=== PATIENT | male | born 1950 | race Caucasian/White ===

== ENCOUNTER 2025-01-04 14:14 | Emergency (ER) | payer MEDICARE, SELFPAY ==
--- OUTSIDE RECORDS SUMMARY | 2022-08-04 13:31 | XMS_ITS | Encounter Summary ---
Author Organization [facility] Address [facility] [place] [address] Care Team Providers Care Curriculum Assistant Principal Name Role Phone Unavailable Primary Care Provider Unavailabl e Encounter Details Date Type Department Care Team (Latest Contact Info) Description 08/04/2022 1:31 PM CDT Hospital Encounter [address] [phone] Ankur Fleming MD [facility] [address] [place] [phone] Hang Anderson MD [address] [place] [phone] [employer] Social History Tobacco Use [...]
--- OUTSIDE RECORDS SUMMARY | 2025-01-04 14:24 | XMS_ITS | Clinical Summary ---
Author Organization [facility] Address [address] [facility] [place] [address] Care Team Providers Care Military Aircraft Designer Name Role Phone Unavailable Primary Care Provider Unavailabl e Source Comments [facility],non-owned Affiliates and Associated Physician Practices is amultiple site organization consisting of ambulatory clinics and hospital sitesin [place], [place], [place] and [place]. This disclosure is being madepursuant to the Care Everywhere program and may not contain all information available regarding this patient. Last updated 18.[facility] [employer] Social History Tobacco Use Types Packs/Day Years Used Date Smoking Tobacco: Never Assessed Sex and Gender Information Value Date Recorded Sex Assigned at Not on file Legal Sex Male 1:51 PM CDT Gender Identity Not on file Sexual Orientation Not on file Plan of Treatment Health Maintenance Due Date Last Done Comments COLOGUARD (AGES 45-75) - COL ON CA SCREENING 1950 COLON MONITORING 1950 COLONOSCOPY - COLON CA SCREENING 1950 CT COLONOGRAPHY - COLON CA SCREENING 1950 Colorectal Cancer Screening 1950 FIT - COLON CA SCREENING 1950 FLEX SIG - COLON CA SCREENING 1950 LIPID TESTING 1950 HEPATITIS C SCREENING 11/30/1968 DTAP/TDAP/TD VACCINES (1 - Tdap) 1969 PNEUMOCOCCAL VACCINE 50+ (1 of 1 - PCV) 2000 ZOSTER VACCINE (1 of 2) 2000 COVID-19 VACCINE (3 - 2023-2 5 season) 2024 10/27/2020, 10/06/2020 DEPRESSION SCREENING 05/08/2024 MEDICARE AWV CALENDAR YEAR 2024 INFLUENZA VACCINE (#1) 2025 Respiratory Syncytial Virus (RSV) Vaccine Pt: or over 60 yrs (1 - 1-dose 75+ series) 2025 HEPATITIS B VACCINE Aged Out No longe r eligible based on patient's age to complete this topic HIB VACCINE Aged Out No longer eligi ble based on patient's age to complete this topic HPV VACCINE Aged Out No longer eligi ble based on patient's age to complete this topic MENINGOCOCCAL (Group B) VACCINE SHARED DECISION-MAKING Aged Out No longer eligible based on patient's age to complete this topic MENINGOCOCCAL GROUPS A/C/Y/W VACCINE Aged Out No longer eligible b ased on patient's age to complete this topic Insurance AETNA MEDICARE ADV Advance Directives * Full Code (Latest Code Status on File) Date Activated Date Inactivated Comments 08/04/2022 8:22 PM 08/16/2022 1:50 PM
[2025-01-04 14:28] VITALS: BP 153/52; PULSE 68; RESP 18; TEMP 36.7; O2SAT 99
--- NOTE | 2025-01-04 14:34 | ED_ITS ---
HPI - Ear Problem General Chief complaint: Ear Stated complaint: ear ache Time Seen by Provider: 01/04/25 14:34 Source: patient Mode of arrival: ambulatory Limitations: no limitations History of Present Illness HPI Narrative: 74 y/o male presented for c/o right ear pain and dizziness. Says dizziness is worse when bending over. Says the right ear is clogged and has muffled hearing. Says he was at the doctor one week ago and was told the ear is full of wax. provides much of the information, and says nothing came out of the ear when they flushed it. Also taking antihistamine. MD Complaint: ear pain Related Data Home Medications ?Medication ?Instructions ?Recorded ?Confirmed ?Last Taken ?Type amlodipine 5 mg tablet mg 01/04/25 Unknown History aspirin 81 mg tablet 81 mg PO DAILY 01/04/25 Unk nown History atorvastatin 40 mg tablet mg 01/04/25 Unknown History ketoconazole 2 % shampoo topical 01/04/25 Unknown Hi story prednisone 10 mg tablet mg 01/04/25 Unknown History triamcinolone acetonide 0.1 % applic topical 01/04/25 Unknown History topical cream Allergies Allergy/AdvReac Type Severity Reaction Status Date / Time oyster extract Allergy Severe Anaphylaxis Verified 01/04/25 14:32 Review of Systems Review of Systems: CONSTITUTIONAL: Denies malaise, chills, or fever. EYES: Denies visual changes, redness, or discharge. ENT: Denies rhinorrhea, congestion, sinus pain, and sore throat. Reports ear pain CARDIOVASCULAR: Denies chest pain, palpitations, or edema. RESPIRATORY: Denies cough or dyspnea. GASTROINTESTINAL: Denies abdominal pain, nausea, vomiting, diarrhea SKIN: Denies rash or itching. MUSCULOSKELETAL: Denies myalgia. NEUROLOGIC: Denies headache. All systems reviewed & are unremarkable except as noted in HPI and below PMFSH Past Medical History Medical History (Updated 01/04/25 @ 14:41 by Jennifer Correia APRN) CVA (cerebral vascular accident) Comments At time of signature, agree with nursing past medical, surgical, social and family history. There is no relevant family history pertinent to the presenting complaint Exam Narrative: GENERAL: Well-appearing EYES: PERRLA, conjunctivae clear ENT: Nares clear. Mucous membranes moist. Right TM unable to visualize due to cerumen impaction. Left TM normal light reflex. canals not erythematous, no drainage, no tragal tenderness. Oropharynx not erythematous without lesions. NECK: Supple. No lymphadenopathy CHEST: Clear to auscultation, breath sounds equal. HEART: Regular rate and rhythm. No murmur heard. SKIN: Warm, dry, no rash. NEURO: Alert and oriented x3. PSYCH: Normal mood and affect Course Course Emergency Course: Patient is aware of diagnosis, understands and agrees to treatment plan. Anticipatory guidance given. Patient agrees to follow-up as directed and is aware of reasons to seek care at the emergency department. Portions of this record may have been created with voice recognition software Level of Care: Express Care Visit Vital Signs Vital signs: Vital Signs Temperature 98.1 F 01/04/25 14:28 Pulse Rate 68 01/04/25 14:28 Respiratory Rate 18 01/04/25 14:28 Blood Pressure 153/52 H 01/04/25 14:28 Pulse Oximetry 99 01/04/25 14:28 Oxygen Delivery Room Air 01/04/25 14:28 Temperature 98.1 F 01/04/25 14:28 Pulse Rate 68 01/04/25 14:28 Respiratory Rate 18 01/04/25 14:28 Blood Pressure 153/52 H 01/04/25 14:28 Pulse Oximetry 99 01/04/25 14:28 Oxygen Delivery Room Air 01/04/25 14:28 Reviewed Procedures Ear Wax Removal Right Ear: Cerumenolytic Used: other ( Warm water and hydrogen peroxide) Results: Re-examined: some cerumen remains TM Examination: other ( unable to visualize) Ear Canal Exam: atraumatic Patient Tolerated Procedure: well and no complications Technique: ear canal irrigated and ear canal curetted Additional Comments: Patient tolerated ear irrigation; large amount of soft wax removed, some hard cerumen remains near TM Medical Decision Making MDM Narrative Medical decision making narrative: Discussed physical exam findings. Patient tolerated ear irrigation; some hard cerumen remains near TM. Advised supportive measures and signs/symptoms to go to the ER. Patient is appropriate for outpatient treatment and follow-up. Differential Diagnosis Differential Diagnosis: Coronavirus, strep pharyngitis, allergic rhinitis, upper respiratory tract infection, sinusitis, rhinosinusitis, nasopharyngitis, viral pharyngitis, otitis media, otitis externa, eustachian tube dysfunction, foreign body, cerumen impaction. Vital Signs Vital Signs: Vital Signs Temperature 98.1 F 01/04/25 14:28 Pulse Rate 68 01/04/25 14:28 Respiratory Rate 18 01/04/25 14:28 Blood Pressure 153/52 H 01/04/25 14:28 Pulse Oximetry 99 01/04/25 14:28 Oxygen Delivery Room Air 01/04/25 14:28 Temperature 98.1 F 01/04/25 14:28 Pulse Rate 68 01/04/25 14:28 Respiratory Rate 18 01/04/25 14:28 Blood Pressure 153/52 H 01/04/25 14:28 Pulse Oximetry 99 01/04/25 14:28 Oxygen Delivery Room Air 01/04/25 14:28 Discharge Plan Discharge Clinical Impression: Cerumen impaction Patient Disposition: Home Condition: Stable Instructions: Antibiotic Form, Carbamide Peroxide (Into the ear) Additional Instructions: use an earwax softening agent such as [id number] Debrox according to package directions, or a mixture of 1 part hydrogen peroxide in 1 part warm water several times a week to keep your earwax soft and prevent further impaction. You can return if symptoms persist after the above measures. Please follow-up with your primary care doctor if you develop new symptoms. If you have urgent concerns please go to the ER. Patient Language: Namibian Prescriptions: No Action atorvastatin 40 mg tablet prednisone 10 mg tablet ketoconazole 2 % shampoo TOPICAL amlodipine 5 mg tablet triamcinolone acetonide 0.1 % cream TOPICAL aspirin 81 mg tablet 81 mg PO DAILY Follow-up/Referrals: PHYSICIAN NOT ON STAFF,NONSTAFF [Primary Care Provider] Time of Disposition: 15:04
== END 2025-01-04 15:12 | disposition home or self-care (01) ==
PROVIDERS: Emergency Provider Nurse Practitioner Family
DX: H61.21 Impacted cerumen, right ear (principal); Z86.73 Personal history of transient ischemic attack (TIA), and cerebral infarction without residual deficits; Z79.82 Long term (current) use of aspirin
CPT/HCPCS: 69209; 99202; A9270; G0463

== ENCOUNTER 2025-01-08 13:10 | Emergency (ER) | payer MEDICARE, SELFPAY ==
--- OUTSIDE RECORDS SUMMARY | 2022-08-04 13:31 | XMS_ITS | Encounter Summary ---
Author Organization [facility] Address [facility] [facility] [place] [address] Care Team Providers Care Glue Drier Operator Name Role Phone Unavailable Primary Care Provider Unavailabl e Encounter Details Date Type Department Care Team (Latest Contact Info) Description 08/04/2022 1:31 PM CDT Hospital Encounter [address] [phone] Ankur Fleming MD [facility] [address] [place] [phone] Hang Anderson MD [address] [place] [phone] [employer] Social History Tobacco Use Types Packs/Day Years Used Date Smoking Tobacco: Never Assessed Sex and Gender Information Value Date Recorded Sex Assigned at Not on file Legal Sex Male 1:51 PM CDT Gender Identity Not on file Sexual Orientation Not on file documented as of this encounter Plan of Treatment Not on file documented as of this encounter Visit Diagnoses Not on filedocumented in this encounter
--- NOTE | 2025-01-08 13:12 | ED_ITS ---
HPI - Ear Problem General Chief complaint: Ear Stated complaint: Ear Pain Source: patient Mode of arrival: ambulatory Limitations: no limitations History of Present Illness HPI Narrative: 74 y/o male presented for c/o right ear pain. Reports he had the ear flushed recently with some removal of wax but not complete removal of wax. He reports he has been using Debrox as directed, he was supposed to flush out again today but started having pain so he did not flush it again. MD Complaint: ear pain Related Data Home Medications ?Medication ?Instructions ?Recorded ?Confirmed ?Last Taken ?Type amlodipine 5 mg tablet mg 01/04/25 Unknown History aspirin 81 mg tablet 81 mg PO DAILY 01/04/25 Unk nown History atorvastatin 40 mg tablet mg 01/04/25 Unknown History ketoconazole 2 % shampoo topical 01/04/25 Unknown Hi story prednisone 10 mg tablet mg 01/04/25 Unknown History Allergies Allergy/AdvReac Type Severity Reaction Status Date / Time oyster extract Allergy Severe Anaphylaxis Verified 01/08/25 13:18 Review of Systems Review of Systems: CONSTITUTIONAL: Denies malaise, chills, or fever. EYES: Denies visual changes, redness, or discharge. ENT: Denies rhinorrhea, congestion, sinus pain, and sore throat. Reports right ear pain CARDIOVASCULAR: Denies chest pain, palpitations, or edema. RESPIRATORY: Denies cough or dyspnea. GASTROINTESTINAL: Denies abdominal pain, nausea, vomiting, diarrhea SKIN: Denies rash or itching. MUSCULOSKELETAL: Denies myalgia. NEUROLOGIC: Denies headache. All systems reviewed & are unremarkable except as noted in HPI and below PMFSH Past Medical History Medical History (Updated 01/08/25 @ 13:36 by Mora Hudson NP) CVA (cerebral vascular accident) Comments At time of signature, agree with nursing past medical, surgical, social and family history. There is no relevant family history pertinent to the presenting complaint Exam Narrative: GENERAL: Well-appearing EYES: PERRLA, conjunctivae clear ENT: Nares clear. Mucous membranes moist. Right TM unable to visualize due to cerumen impaction. Left TM normal light reflex. canals not erythematous, no drainage, no tragal tenderness. Oropharynx not erythematous without lesions. NECK: Supple. No lymphadenopathy CHEST: Clear to auscultation, breath sounds equal. HEART: Regular rate and rhythm. No murmur heard. SKIN: Warm, dry, no rash. NEURO: Alert and oriented x3. PSYCH: Normal mood and affect Course Course Emergency Course: Patient is aware of diagnosis, understands and agrees to treatment plan. Anticipatory guidance given. Patient agrees to follow-up as directed and is aware of reasons to seek care at the emergency department. Portions of this record may have been created with voice recognition software Level of Care: Express Care Visit Vital Signs Vital signs: Reviewed Procedures Ear Wax Removal Right Ear: Ear Wax Removal Date: 01/08/25 Ear Wax Removal Time: 13:28 Cerumenolytic Used: other ( Warm water and hydrogen peroxide) Results: Re-examined: cerumen removed completely TM Examination: TM(s) perforation Ear Canal Exam: bleeding Noted Patient Tolerated Procedure: well Complications: pain Technique: ear canal irrigated Additional Comments: Ear canal flushed very briefly, chunk of wax removed, visualized after that, noticed bleeding and what appears to be ear drum rupture. Procedure discontinued. Medical Decision Making MDM Narrative Medical decision making narrative: Discussed physical exam findings. Patient tolerated ear irrigation; some hard cerumen remains near TM. Advised supportive measures and signs/symptoms to go to the ER. Patient is appropriate for outpatient treatment and follow-up. Differential Diagnosis Differential Diagnosis: Coronavirus, strep pharyngitis, allergic rhinitis, upper respiratory tract infection, sinusitis, rhinosinusitis, nasopharyngitis, viral pharyngitis, otitis media, otitis externa, eustachian tube dysfunction, foreign body, cerumen impaction. Critical Care Time Critical Care Time Critical Care Time: No Discharge Plan Discharge Clinical Impression: Ruptured ear drum Patient Disposition: Home Condition: Stable Instructions: General Patient Instructions, Ruptured Eardrum (ED) Additional Instructions: 1) Please follow-up with your primary care doctor in the next 2 weeks 2) If you have any worsening of symptoms or any other urgent concerns please go to the ER. 3) Please take medications as prescribed and continue taking your home medications as usual. 4) Please read and follow information included in d ischarge instructions. . Patient Language: Filipino Prescriptions: New ofloxacin 0.3 % drops 5 drp RIGHT EAR DAILY 7 Days Qty: 10 0RF No Action atorvastatin 40 mg tablet prednisone 10 mg tablet ketoconazole 2 % shampoo TOPICAL amlodipine 5 mg tablet aspirin 81 mg tablet 81 mg PO DAILY Follow-up/Referrals: UNKNOWN,DOCTOR [Primary Care Provider]
[2025-01-08 13:19] VITALS: BP 168/64; PULSE 68; RESP 18; TEMP 36.8; O2SAT 98
--- OUTSIDE RECORDS SUMMARY | 2025-01-08 14:22 | XMS_ITS | Clinical Summary ---
Author Organization [facility] Address [address] [place] [address] Phone Care Team Providers Care Power Saw Operator Name Role Phone Taj Bowman MD Primary Care Provider Allergies Active Allergy Reactions Criticality Noted Date Comments Bee Venom Swelling Medium 01/25/2019 Other-Environmental Allergen (Not Found In Search) Hives,Swelling Medium 01/25/2019 Oysters Oyster Extract Anaphylaxis High 11/19/2020 Medications amLODIPine (NORVASC) 10 MG Tablet Take 1 Tablet by mouth daily. 90 Tablet 3 3 Active acyclovir (ZOVIRAX) 800 MG Tablet Take 1 Tablet by mouth 2 times daily. 180 Tablet 3 Active famotidine (PEPCID) 10 MG Tablet Take 10 mg by mouth. 3 Active Lidocaine 4 % Patch 1 Patch by Transdermal route. 3 Active lisinopril (PRINIVIL, ZESTRIL) 5 MG Tablet Take 5 mg by mouth. 3 Active melatonin 3 MG Tablet Take 3 mg by mouth. 3 Active polyethylene glycol (GLYCOLAX) 17 GM/SCOOP Powder Take 17 g by mouth. 3 Active atorvastatin (LIPITOR) 20 MG Tablet Take 4 Tablets by mouth nightly. 120 Tablet 5 3 Active triamcinolone (ARISTOCORT) 0.5 % Cream APPLY TO RASH ON FACE TWICE DAILY NEEDED FOR FLARE UP 45 g 3 3 Active Active Problems Problem Noted Date Diagnosed Date Herpes simplex infection 05/31/2021 Other hyperlipidemia 05/31/2021 Overview (05/31/2021): Check lipid profile. Continue low-cholesterol diet. Essential hypertension, benign 05/31/2021 Overview (05/31/2021): Stable. Continue current medication Encounters Date Type Department Care Team Description 01/04/2025 2:22 AM CDT - 01/04/2025 4:22 AM CDT Emergency [facility] [address] [place] [address] Discharge Disposition: LWBS 01/04/2025 Travel from Last 3 Months Immunizations Immunization Administration Dates Next Due Covid-19, Mrna, Lnp-s, Pf, 30 Mcg/0.3 Ml Dose (P fizer) 10/27/2020,10/06/2020 Pneumococcal conjugate PCV20 , polysaccharide [id number] conjugate, adjuvant, PF 07/27/2023 Family History Relation Name Status Comments Brother Alive Father Mother Sister Social History Tobacco Use Types Packs/Day Years Used Date Smoking Tobacco: Former Cigarettes Smokeless Tobacco: Never Tobacco Cessation:Counseling Given: Not Answered Alcohol Use Standard Drinks/Week Comments Yes 0 (1 standard drink = 0.6 oz pur e alcohol) Occasional PHQ-2 Answer Date Recorded Total Score - Questions 1-9 0 05/09 Sexually Active Control Partners Comments Yes Female Sex and Gender Information Value Date Recorded Sex Assigned at Not on file Legal Sex Male 12:31 AM CDT Gender Identity Not on file Sexual Orientation Not on file Last Filed Vital Signs Vital Sign Reading Time Taken Comments Blood Pressure 187/78 01/04/2025 2:33 AM CDT Pulse 60 01/04/2025 2:29 AM CDT Temperature 36.2 C (97.1 F) 01/04/2025 2:29 AM CDT Respiratory Rate 18 01/04/2025 2:29 AM CDT Oxygen Saturation 99% 01/04/2025 2:29 AM CDT Inhaled Oxygen Concentration - - Weight 70.3 kg (155 lb) 01/04/2025 2:29 AM CDT Height 172.7 cm (5' 8) 01/04/2025 2:29 AM CDT Body Mass Index 23.57 01/04/2025 2:29 AM CDT Plan of Treatment Health Maintenance Due Date Last Done Comments Hepatitis C Virus (HCV) Screening 1950 TdaP Immunization 1950 Colonoscopy 12/06/1995 Immunochemical Fecal Occult Blood 12/06/1995 Zoster Immunization (1 of 2) 2000 AAA Screening Ultrasound 12/06/2015 Cologuard 07/21/2022 07/22/2019 Colorectal Cancer Screening 07/21/2022 SARS-COV-2 Immunization ( season) 2025 04/16/2022, 05/17/2021, 05/04/2021, Additional history exists Respiratory Syncytial Virus (RSV) Immunization (Adult) (1 - 1-dose 75+ series) 2025 PSA Discussion Discontinued 11/25/2020 Pneumococcal Immunization (50+ years) Discontinued 07/27/2023 Pneumococcal Immunization Combined Discontinued 07/27/2023 Hepatitis B Immunization Aged Out No longer eligible based on patient's age to complete this topic Human Papillomavirus (HPV) Immunization Aged Out No longer eligible based on patient's age to complete this topic Influenza Immunization Discontinued Meningococcal Immunization (ACWY) Aged Out No longer eligible based on patient's age to complete this topic Rotavirus Immunization Aged Out No lo nger eligible based on patient's age to complete this topic Procedures Procedure Name Priority Date/Time Associated Diagnosis Comments PSA SCREEN Routine 11/25/2020 Screening for prostate cancer COLOGUARD Routine 07/22/2019 from Last 3 Months or Most Recently Relevant to Health Maintenance Results * PSA SCREEN (11/25/2020) PSA (PROSTATE SPECIFIC ANTIGEN) 0.6 ng/mL Blood 11/25/2020 us Taj Bowman MD CHEMISTRY ORDERABLES Final Result * COLOGUARD (07/22/2019) us Taj Bowman MD BODY FLUIDS & STOOLS ORDERA BLES Final Result from Last 3 Months or Most Recently Relevant to Health Maintenance Insurance MEDICARE C AETNA Care Teams Power Saw Operator Relationship Specialty Start Date End Date Taj Bowman MD PCP - General Internal Medicine 06/20/19
--- OUTSIDE RECORDS SUMMARY | 2025-01-08 14:22 | XMS_ITS | Clinical Summary ---
Author Organization [facility] Address [address] [place] [address] Care Team Providers Care Supervisor Carpenters Name Role Phone Ra Crowder DO Primary Care Provider [phone] Allergies Active Allergy Reactions Criticality Noted Date Comments Bee Venom Protein (Honey Bee) Swelling Medium 2018 Venom-Honey Bee Swelling Medium 01/25/2019 Calcium Carbonate Anaphylaxis High 12/16/2024 Other Hives,Swelling Medium 01/25/2019 Oysters Oyster Extract Anaphylaxis High 11/19/2020 Medications triamcinolone (KENALOG) 0.1 % creamIndications :Skin Inflammation Apply topically 2 (two) times a day 11/14/19 19 Active ARGININE, L-ARGININE, ORALIndications: supplement Take 1 tablet by mouth every morning Active amLODIPine (NORVASC) 5 mg tablet TK 1 T PO D 0 02/09/20 19 Active aspirin 81 mg enteric coated tablet 1 tablet (81 mg total) 08/19/19 23 Active atorvastatin (LIPITOR) 40 mg tablet Take 1 tablet (40 mg total) by mouth daily Active ketoconazole (NIZORAL) 2 % shampoo 12/17/19 25 Active VITAMINS A AND D ORALIndications: supplement Take 1 tablet by mouth every morning 025 Discontin ued(Patie nt Reported) vitamin E acetate (VITAMIN E ORAL)Indications :supplement Take 2 tablets by mouth every morning 025 Discontin ued(Patie nt Reported) ubidecarenone (CO Q-10 ORAL)Indications :supplement Take 1 tablet by mouth every morning 025 Discontin ued(Patie nt Reported) herbal drugs tabletIndication s:Bone Restore Take 1 tablet by mouth every morning 025 Discontin ued(Patie nt Reported) herbal drugs tabletIndication s:T M G for heart Take 1 tablet by mouth every morning 025 Discontin ued(Patie nt Reported) prasterone, DHEA, (DHEA ORAL)Indications :supplement Take 1 tablet by mouth every morning 025 Discontin ued(Patie nt Reported) NIACIN ORAL Take 1 tablet by mouth every morning 025 Discontin ued(Patie nt Reported) docosahexanoic acid/epa (FISH OIL ORAL)Indications :supplement Take 2 Caplet by mouth every morning 025 Discontin ued(Patie nt Reported) cyanocobalamin, vitamin B-12, (VITAMIN B-12 ORAL) Take 1 tablet by mouth every morning 025 Discontin ued(Patie nt Reported) Lactobac no.41/Bifidobact no.7 (PROBIOTIC-10 ORAL) Take 1 Caplet by mouth every morning 025 Discontin ued(Patie nt Reported) herbal drugs tabletIndication s:sea kelp for iodine Take 1 tablet by mouth every morning 025 Discontin ued(Patie nt Reported) acyclovir (ZOVIRAX) 5 % ointment Space applications every 3 hours. 025 Discontin ued(Patie nt Reported) Active Problems Problem Noted Date Diagnosed Date Pain of left eye 10/23/2023 Assessment & Plan (10/23/2023 2:50 PM CDT): Trial of Ats prn. Ischemic optic neuropathy of left eye 10/21/2021 Assessment & Plan (12/17/2024 2:18 PM CDT): Stable. Observe. Assessment & Plan (10/23/2023 2:47 PM CDT): Known hx of naion OS. Stable acuity OS today. Observe. Assessment & Plan (10/27/2022 4:09 PM CDT): Known hx of naion OS. Stable acuity OS today. Observe. Assessment & Plan (10/21/2021 3:09 PM CDT): Back early today for complaints of blurred spot in vision left eye (OS); started 05/2021 as intermittent but now constant X 2 months +amlodipine X 1 year for HTN; takes in the morning; recently increased from 5mg to 10mg as BP was high yesterday at this office visit +afferent pupillary defect (APD) left eye (OS) -baseline OCT ONH shows polar thinning left eye (OS); normal right eye (OD) -denies headache or malaise but will order ESR/CRP to rule out (r/o) GCA -RTC 2 weeks with hVF (machine down today) and OCT ONH PVD (posterior vitreous detachment), left eye Assessment & Plan (10/21/2021 3:06 PM CDT): Chronic; retina flat and attached Assessment & Plan (05/19/2021 4:26 PM PRIMARY CARE MD): Accounting for visual complaints. No retinal holes/tears/detachments. The signs and symptoms of retinal detachment were reviewed. Advised urgent evaluation with any onset. Brow ptosis, bilateral 11/29/2018 Overview (11/29/2018): Added automatically from request for surgery [id number] Peripheral visual field defect of both eyes 11/06 Overview (11/29/2018): Added automatically from request for surgery [id number] Assessment & Plan (04/24/2023 3:52 PM PRIMARY CARE MD): Improved from last. Likely due to old CVA. Repeat test annually. Assessment & Plan (10/27/2022 4:08 PM CDT): New inferior right subjective defect, confirmed with shallow defect of inferior right visual field on testing today. Likely 2' to known hx of left CVA. No further work up or intervention is warranted. Repeat VF in 6 mos. 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 Repeat exam annually. Assessment & Plan (10/23/2023 2:48 PM CDT): No e/o exudative disease on OCT. Annually. Assessment & Plan (04/24/2023 3:53 PM PRIMARY CARE MD): Stable on exam with no e/o exudative disease. Repeat DFE/mac OCT at f/u in 6 mos. Assessment & Plan (10/27/2022 4:07 PM CDT): Stable without evidence of exudative disease on exam today. Assessment & Plan (10/21/2021 3:03 PM CDT): Stable on mac oct; no choroidal neovascular membrane (CNVM) -follow Assessment & Plan (05/19/2021 4:26 PM PRIMARY CARE MD): No e/o cnvm on exam and OCT today. Amsler. F/u annually. Assessment & Plan (11/09/2018 12:45 PM CDT): No active CNV Counseled regarding importance of Amsler ou Age-related nuclear cataract of both eyes 2018 Assessment & Plan (12/17/2024 2:18 PM CDT): Stable. Observe. Assessment & Plan (10/23/2023 2:47 PM CDT): Stable. Observe. Assessment & Plan (04/24/2023 3:53 PM PRIMARY CARE MD): Stable. Observe. Assessment & Plan (10/27/2022 4:09 PM CDT): Stable. Observe. Assessment & Plan (10/21/2021 3:06 PM CDT): Not yet visually significant; follow Assessment & Plan (05/19/2021 4:26 PM PRIMARY CARE MD): Stable. Observe. Update SRx. 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 Family History Medical History Relation Name Comments Cancer Brother Heart attack Father Stroke Mother Glaucoma Neg Hx Macular degeneration Neg Hx Relation Name Status Comments Brother Father Mother Social History Tobacco Use Types Packs/Day Years Used Date Smoking Tobacco: Former Cigarettes Q uit: 2010 Smokeless Tobacco: Never Alcohol Use Standard Drinks/Week Comments Yes 0 (1 standard drink = 0.6 oz pur e alcohol) rare Sex and Gender Information Value Date Recorded Sex Assigned at Not on file Legal Sex Male 7:41 PM PRIMARY CARE MD Gender Identity Not on file Sexual Orientation Not on file 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 Not on file Not on file Obstetrics History Last Filed Vital Signs Vital Sign Reading Time Taken Comments Blood Pressure 167/82 02/06/2019 3:20 PM CDT Pulse 65 02/06/2019 3:20 PM CDT Temperature 36 C (96.8 F) 02/06/2019 3:10 PM CDT Respiratory Rate 28 02/06/2019 1:30 PM CDT Oxygen Saturation 93% 02/06/2019 3:20 PM CDT Inhaled Oxygen Concentration - - Weight 73.5 kg (162 lb) 01/25/2019 1:35 PM CDT Height 170.2 cm (5' 7) 01/25/2019 1:35 PM CDT Body Mass Index 25.37 01/25/2019 1:35 PM CDT Plan of Treatment Health Maintenance Due Date Last Done Comments Colon Cancer Screening-Colonoscopy 1950 Depression Screening 1950 Fall Risk Assessment 1950 Hepatitis C Screening 1950 DTaP/Tdap/Td Vaccine (1 - Tdap) 1961 Hepatitis B Screening 1968 Zoster Vaccine (1 of 2) 2000 Abdominal Aortic Aneurysm (A AA) Screen 12/06/2015 Well Visit 65+ 12/06/2015 Covid-19 Vaccine ( season) 2024 05/04/2021, 10/27/2020, 10/06/2020 Influenza Vaccine (#1) 2025 Pneumococcal vaccine 65+ Completed 07/27/2023 Insurance [facility] [employer] [facility] [employer] Care Teams Supervisor Carpenters Relationship Specialty Start Date End Date Ra Crowder DO [address] [facility] [address] [place] [address] PCP - General Family Medicine 10/23/23
--- OUTSIDE RECORDS SUMMARY | 2025-01-08 14:22 | XMS_ITS | Clinical Summary ---
Author Organization [facility] Address [address] [place] [address] Care Team Providers Care Edger Machine Helper Name Role Phone Taj Bowman MD Primary Care Provider [phone] Allergies No known active allergies Medications aspirin 81 MG chewable tabletIndicatio ns:Ischemic Stroke Chew 1 tablet (81 mg total) in the morning. Indications: Stroke Due To Limited Blood Flow. 0 08/16/2022 Active atorvastatin (LIPITOR) 80 MG tablet Take 1 tablet (80 mg total) by mouth nightly. 30 tablet 08/16/2022 Active famotidine (PEPCID) 10 MG tablet Take 1 tablet (10 mg total) by mouth in the morning and 1 tablet (10 mg total) before bedtime. 0 08/16/2022 Active lidocaine (LIDOCARE) 4 % patch patch Place 1 patch on the skin daily as needed for mild pain. 0 08/16/2022 Active lisinopril (ZESTRIL) 5 MG tablet Take 1 tablet (5 mg total) by mouth in the morning. 30 tablet 08/16/2022 Active melatonin tablet Take 1 tablet (3 mg total) by mouth nightly as needed for sleep. 0 08/16/2022 Active polyethylene glycol (MIRALAX) 17 g packet Take 17 g by mouth daily as needed (2nd line for constipation ). 10 each 08/16/2022 Active Active Problems Problem Noted Date Diagnosed Date Carotid artery stenosis 08/05/2022 Hyperlipidemia 08/05/2022 Aphasia 08/05/2022 CVA (cerebrovascular accident) during surgery Immunizations Immunization Administration Dates Next Due Pfizer SARS-CoV-2 Vaccination 05/04/2021 Social History Tobacco Use Types Packs/Day Years Used Date Smoking Tobacco: Never Smokeless Tobacco: Never Tobacco Cessation:Counseling Given: Not Answered Sex and Gender Information Value Date Recorded Sex Assigned at Not on file Legal Sex Male 2:50 PM EDT Gender Identity Not on file Sexual Orientation Not on file Last Filed Vital Signs Vital Sign Reading Time Taken Comments Blood Pressure 121/73 08/16/2022 8:00 AM CDT Pulse 58 08/16/2022 8:00 AM CDT Temperature 36.1 C (96.9 F) 08/16/2022 8:00 AM CDT Respiratory Rate 16 08/16/2022 8:00 AM CDT Oxygen Saturation 96% 08/16/2022 8:00 AM CDT Inhaled Oxygen Concentration - - Weight 75.8 kg (167 lb) 08/04/2022 10:24 PM CDT Height 172.7 cm (5' 8) 08/04/2022 10:24 PM CDT Body Mass Index 25.39 08/04/2022 10:24 PM CDT Plan of Treatment Health Maintenance Due Date Last Done Comments CT Colonography 1950 Colonoscopy 1950 Colorectal Cancer Screening 1950 FIT-DNA (Cologuard) 1950 FIT 1950 FOBT 1950 Sigmoidoscopy 1950 Annual Visit Topic 12/06/1951 Hepatitis C Screening 1968 DTaP/Tdap/Td Vaccines (1 - Tdap) 1969 Pneumococcal Vaccine: 65+ Ye ars (1 of 2 - PCV) 2000 HIB Vaccines Aged Out No longer eligi ble based on patient's age to complete this topic HPV Vaccines Aged Out No longer eligi ble based on patient's age to complete this topic Hepatitis A Vaccines Aged Out No long er eligible based on patient's age to complete this topic Hepatitis B Vaccines Aged Out No long er eligible based on patient's age to complete this topic IPV Vaccines Aged Out No longer eligi ble based on patient's age to complete this topic Meningococcal Vaccine Aged Out No bon dahlia eligible based on patient's age to complete this topic Advance Directives * Full Resuscitation (Latest Code Status on File) Date Activated Date Inactivated Comments 08/04/2022 10:29 PM 08/16/2022 3:24 PM Care Teams Edger Machine Helper Relationship Specialty Start Date End Date Taj Bowman MD [address] [place] [address] PCP - General Internal Medicine 08/05/22
--- OUTSIDE RECORDS SUMMARY | 2025-01-08 14:22 | XMS_ITS | Encounter Summary ---
Author Organization [facility] Address [address] [place] [address] Phone Care Team Providers Care Health And Safety Coordinator Name Role Phone Taj Bowman MD Primary Care Provider [phone] Reason for Visit * Reason Comments Medication Refill Encounter Details Date Type Department Care Team (Late st Contact Info) Description 08/28/2021 Refill [facility] - Internal Medicine - [place] [address] [place] [address] Taj Bowman MD [address] [place] [address] Medication Refill Social History Tobacco Use Types Packs/Day Years Used Date Smoking Tobacco: Former Cigarettes Smokeless Tobacco: Never Alcohol Use Standard Drinks/Week [...] on file documented as of this encounter Miscellaneous Notes * Telephone Encounter - Stefania Velasco RN - 08/30/2021 7:49 AM CDT Medication failed the protocol, provider to review and approve the medication order if appropriate. Requested Prescriptions Pending Prescriptions Disp Refills acyclovir (ZOVIRAX) 800 MG Tablet [Pharmacy Med Name: ACYCLOVIR 800 MG TABLET] 180 Tablet 0 Sig: TAKE 1 TABLET BY MOUTH TWICE DAILY FOR 5 DAYS FOR HERPES FLARE UP Not Delegated - Herpes Agents Protocol Failed - 08/28/2021 7:18 AM Failed - This refill cannot be delegated Passed - Visit with relevant provider in past 12 months or upcoming 90 days Recent Visits Date Type Provider Dept 05/31/21 Office Visit Taj Bowman MD [facility] 11/19/20 Office Visit Taj Bowman MD [facility] Showing recent visits within past 365 days and meeting all other requirements Future Appointments No visits were found meeting these conditions. Showing future appointments within next 90 days and meeting all other requirements documented in this encounter Plan of Treatment Not on file documented as of this encounter Visit Diagnoses Not on filedocumented in this encounter Additional Health Concerns Infection Onset Date Last Indicated Resolved Time COVID - 19 11/02/2021 11/02/2021 11/12/2021 12:1 6 AM CDT Assessment Noted Time PHQ-9 Depression Total Score: 0 11/20/19 21 3:00 PM CDT documented as of this encounter Care Teams Health And Safety Coordinator Relationship Specialty Start Date End Date Taj Bowman MD PCP - General Internal Medicine 06/20/19 documented as of this encounter
--- OUTSIDE RECORDS SUMMARY | 2025-01-08 14:22 | XMS_ITS | Clinical Summary ---
Author Organization [facility] Address [address] [place] [address] Care Team Providers Care Children'S Tutor Name Role Phone Unavailable Primary Care Provider Unavailabl e Source Comments [facility],non-owned Affiliates and Associated Physician Practices is amultiple site organization consisting of ambulatory clinics and hospital sitesin [place], [place], [place] and [place]. This disclosure is being madepursuant to the Care Everywhere program and may not contain all information available regarding this patient. Last updated 18.[facility] Social History Tobacco Use Types Packs/Day Years [...]
== END 2025-01-08 13:53 | disposition home or self-care (01) ==
PROVIDERS: Emergency Provider Nurse Practitioner
DX: H72.91 Unspecified perforation of tympanic membrane, right ear (principal); H61.21 Impacted cerumen, right ear; Z86.73 Personal history of transient ischemic attack (TIA), and cerebral infarction without residual deficits; Z79.82 Long term (current) use of aspirin
CPT/HCPCS: 69209; 99213; A9270; G0463